=== PATIENT | female | born 1970 | race Caucasian/White ===

== ENCOUNTER 2017-04-28 16:19 | Emergency (ER) | payer BC ==
[2017-04-28] MEDS ORDERED: ASPIRIN 81 MG CHEW TAB PO ONE (16:41)
[2017-04-28] MEDS ORDERED: MAG HYDROX/AL HYDROX/SIMETH 30 ML, Lidocaine 2%Visc 15ml 20 MG, PHENobarb/HYOSCY/ATROPI... PO ONE ×3 (16:42)
--- NOTE | 2017-04-28 16:45 | ED Physician Documentation ---
Chest Pain - HISTORIAN Historian: patient - HPI Stated Complaint: chest burning Chief Complaint: Chest Pain Additional Information: she is having burning throat and chest pain, she says these same symptoms caused her to need open heart surgery 2 years ago. no workup or testing since. No other symptoms, no diff breathing. she is a little anxious. Onset: minutes Timing: sudden onset Duration: constant Last known Well Date: 04/28/17 Last Known Well Time: 12:00 Context: activity Severity: moderate Quality: burning, like prior SC Chest Pain Radiation: no radiation Chest Pain Signs/Symptoms: denies: nausea, vomiting, diaphoresis, dizziness, dyspnea Worsened By: nothing Relieved By: nothing Further Comments: no - ROS CONST: recent illness (sinusitis started on clindamycin) MS/LYMPH: none GI/: none EYES/ENT: none SKIN/ENDO: none NEURO/PSYCH: none - PAST HX SC risk factors: hypertension, diabetes Type 2, hyperlipidemia, cardiac disease , angina DVT/PE Risk Factors: none TAD/AAA risk factors: none Neuro deficit: none GI disease: none Lung disease: none Surgeries/Procedures: cardiac bypass, cardiac cath, cholecysectomy, appendectomy Allergies/Adverse Reactions: Allergies Allergy/AdvReac Type Severity Reaction Status Date / Time Sulfa (Sulfonamide Allergy Verified 04/28/17 16:36 Antibiotics) Home Medications: Ambulatory Orders Medication Instructions Recorded Atorvastatin Calcium 20 mg PO QDAY 04/28/17 Clindamycin HCl [Clindamycin HCl] 04/28/17 Clopidogrel Bisulfate [Clopidogrel] 75 mg PO QDAY 04/28/17 Lisinopril [Lisinopril] 10 mg PO QDAY 04/28/17 Metformin HCl [Glucophage] 1,000 mg PO [id number] 04/28/17 Metoprolol Tartrate [Lopressor] 25 mg PO QDAY 04/28/17 - SOCIAL HX Smoking History: cigarettes, greater than 1 pack/day Alcohol Use: none Drug Use: none - FAMILY HX Family HX: CAD under 55 - VITAL SIGNS Vital Signs: Vital Signs Temp Pulse Resp BP Pulse Ox 98.2 F 107 H 18 149/110 99 04/28/17 16:19 04/28/17 16:19 04/28/17 16:19 04/28/17 16:19 04/28/17 16:19 - REVIEWED ASSESSMENTS Nursing Assessment Reviewed: Yes Vitals Reviewed: Yes ED Results Lab/Radiology - Lab Results Lab Results: Blood glucose is high, we'll systematically get it reduced, once in the 200's we 'll discharge BS 282 1/2 hr after last dose, we'll discharge after fluids in. - Orders Orders: ED Orders Category Date Time Status Continuous EKG monitoring Q30M Care 04/28/17 16:41 Ordered Continuous Pulse Oximetry Q30M Care 04/28/17 16:41 Ordered CHEST 1 VIEW [RAD] Stat Exams 04/28/17 16:41 Ordered CBC/PLATELET/DIFF Routine Lab 04/28/17 16:41 Ordered CMP Routine Lab 04/28/17 16:41 Ordered CREATINE KINASE Routine Lab 04/28/17 16:41 Ordered TROPONIN I (cTnI) Stat Lab 04/28/17 16:41 Ordered Aspirin Med 04/28/17 16:41 Once 324 mg PO NOW ONE Gi Cocktail Med 04/28/17 16:42 Ordered Mag Hydrox/Al Hydrox/Simeth [Mylanta] 30 ml Lidocaine 2%Visc 15ml [Xylocaine] 20 mg PHENobarb/HYOSCY/ATROPINE/SCOP [] 10 ml PO NOW Oxygen Daily Oxygen 04/28/17 16:45 Ordered EKG WITH COMPARISON Stat Ther 04/28/17 16:41 Ordered Chest Pain Physical Exam - EXAM General Appearance: mild distress, anxious EENT: eye inspection normal, ENT inspection normal, no signs of dehydration Neck: nml inspection, no carotid bruit. No: JVD present, lymphadenopathy Respiratory: no resp. distress, nml breath sounds CVS: reg. rate & rhythm, no murmur, no gallop, pulses full Abdomen: soft Skin: warm/dry, normal color Extremities: non-tender, normal range of motion Neuro: oriented X3 Discharge Clincal Impression: GERD with esophagitis, Pulmonary infiltrate in right lung on chest x-ray Hyperglycemia due to type 2 diabetes mellitus Qualifiers: Diabetes mellitus half-way insulin use: without half-way use Qualified Code(s ): E11.65 - Type 2 diabetes mellitus with hyperglycemia Referrals: Primary Doctor,No [Primary Care Provider] - 2 Days Home Medications: Ambulatory Orders Atorvastatin Calcium 20 mg PO QDAY 04/28/17 Clindamycin HCl [Clindamycin HCl] 04/28/17 Clopidogrel Bisulfate [Clopidogrel] 75 mg PO QDAY 04/28/17 Lisinopril [Lisinopril] 10 mg PO QDAY 04/28/17 Metformin HCl [Glucophage] 1,000 mg PO [id number] 04/28/17 Metoprolol Tartrate [Lopressor] 25 mg PO QDAY 04/28/17 Condition: Stable Disposition: 01 HOME, SELF-CARE Decision to Admit: NO Date of Decison to Admit: 04/28/17 Decision Time: 20:08
[2017-04-28] MEDS ORDERED: Lidocaine 2%Visc 15ml 20 MG/ML UDC ONE (16:52)
[2017-04-28] MEDS ORDERED: MAG HYDROX/AL HYDROX/SIMETH 30 ML UDC PO ONE (16:52)
[2017-04-28 16:55] LABS: BASOPHILS % 0.7 (0.0-1.5); EOSINOPHILS % 1.7 % (0.0-6.8); MEAN CORPUSCULAR HEMOGLOBIN 33.4 pg (28.0-34.0); MEAN CORPUSCULAR VOLUME 97.4 fl (80.0-100.0); MONOCYTES % 3.5 % (0.0-11.0); NEUTROPHILS # 8.8 # k/uL (1.4-7.7)
[2017-04-28 17:03] LABS: eGFR (African) > 60; eGFR (Non-African) > 60
[2017-04-28] MEDS ORDERED: LACTATED RINGERS 1,000 ML IV ONE ×2 (17:45→19:20)
[2017-04-28] MEDS ORDERED: INSULIN REGULAR, HUMAN 100 UNIT/ML 3ML VIAL IV ONE ×2 (17:45→19:20)
--- NOTE | 2017-04-28 19:25 | Diagnostic Imaging Report ---
BARRY MEDINA [facility] [address] [facility].[address] [id number] Report Submission Date: Apr 28, 2017 5:02:47 PM CDT Patient Study Name: ELI CARO Date: Apr 28, 2017 4:45:21 PM CDT Modality Type: CR Gender: F Description: CHEST : 68 Institution: [facility] Physician: BARRY MEDINA Examination: Portable chest History: Chest discomfort Findings: Single view of the chest demonstrates a normal cardiac silhouette. Sternotomy wires. Right paratracheal haziness. No other infiltrative process. No effusion. Osseous structures are appropriate for age. Impression: Right paratracheal hazy infiltrate. No effusion. Electronically signed on Apr 28, 2017 5:02:47 PM CDT by: Samuel MARKS
[2017-04-28 20:46] VITALS: BP 118/69
== END 2017-04-28 20:20 | disposition home or self-care (01) ==
LOC: ED 16:19
DX: K21.0 Gastro-esophageal reflux disease with esophagitis (principal); R91.8 Other nonspecific abnormal finding of lung field; E11.65 Type 2 diabetes mellitus with hyperglycemia
CPT/HCPCS: 71010; 80053; 82550; 84484; 85025; A9270; J1815; J7120; 96361; 96374; 99283; S1016